=== PATIENT | female | born 2000 | race Caucasian/White ===

== ENCOUNTER 2019-05-23 11:58 | Emergency (ER) | payer OTHER ==
[2019-05-23 13:42] VITALS: BP 123/72
--- NOTE | 2019-05-26 07:08 | UC ---
- Progress Note Progress Note: urine culture - no growth, final no change analisa Course/Dx - Diagnoses Provider Diagnoses: Dysuria Discharge ED - Sign-Out/Discharge Documenting (check all that apply): Post-Discharge Follow Up All imaging exams completed and their final reports reviewed: No Studies - Discharge Plan Condition: Good Disposition: HOME Prescriptions: Sulfamethox/Trimethoprim DS* [Bactrim DS 800/160 TAB*] 1 tab PO BID 5 Days #10 tab Patient Education Materials: Urinary Tract Infection in Women (DC) Referrals: Jacqueline Marroquin MD [Primary Care Provider] - Additional Instructions: Increase fluids, take the antibiotic with food. Follow up at the [facility] if no improvement in 3 or 4 days. Go to the emergency room if you develop any fever, chills, back pain or vomiting and unable keep medicine down. - Billing Disposition and Condition Condition: GOOD Disposition: Home
--- NOTE | 2019-07-03 11:47 | UC ---
Complaint Female HPI - HPI Summary HPI Summary: Burning on urination just starting this morning. No fever, or chills. - History Of Current Complaint Chief Complaint: UCGU Stated Complaint: URINARY COMPLAINT Time Seen by Provider: 05/23/19 13:42 Hx Obtained From: Patient Hx Last Menstrual Period: 05/17/19 ?: No Onset/Duration: Gradual Onset Timing: Intermittent Severity Initially: Mild Severity Currently: Mild Pain Intensity: 0 Pain Scale Used: 0-10 Numeric Character: Burning Aggravating Factor(s): Urination Alleviating Factor(s): Nothing Associated Signs And Symptoms: Positive: Negative - Allergies/Home Medications Allergies/Adverse Reactions: Allergies Allergy/AdvReac Type Severity Reaction Status Date / Time No Known Allergies Allergy Verified 05/23/19 13:42 Home Medications: Home Medications Norethindrone-Ethinyl Estrad [Nortrel 0.5/35 (28) 0.5-35 mg-Mcg] 1 tab PO DAILY 05/23/19 [History Confirmed 05/23/19] PMH/Surg Hx/FS Hx/Imm Hx Previously Healthy: Yes - Surgical History Surgical History: None - Family History Known Family History: Positive: Non-Contributory - Social History Lives: With Family Alcohol Use: None Substance Use Type: None Smoking Status (MU): Never Smoked Tobacco Review of Systems All Other Systems Reviewed And Are Negative: Yes Genitourinary: Positive: Dysuria, Frequency, Urgency. Negative: Vaginal/Penile Burning, Vaginal/Penile Itching, Vaginal/Penile Discharge, Vaginal/Penile Pain, Vaginal/Penile Tenderness Is Patient Immunocompromised?: No Physical Exam Triage Information Reviewed: Yes Appearance: Well-Appearing, No Pain Distress, Well-Nourished Vital Signs: Initial Vital Signs Temp 98.9 F 05/23/19 13:38 Pulse 81 05/23/19 13:38 Resp 16 05/23/19 13:38 BP 123/72 05/23/19 13:38 Pulse Ox 100 05/23/19 13:38 Vital Signs Reviewed: Yes Eyes: Positive: Conjunctiva Clear ENT: Positive: Pharynx normal, TMs normal, Uvula midline Neck: Positive: Supple, Nontender, No Lymphadenopathy Respiratory: Positive: Lungs clear, Normal breath sounds, No respiratory distress, No accessory muscle use Cardiovascular: Positive: RRR, No Murmur, Pulses Normal, Brisk Capillary Refill Abdomen Description: Positive: Nontender, No Organomegaly, Soft. Negative: CVA Tenderness (R), CVA Tenderness (L), Distended, Guarding, Hepatomegaly, McBurney' s Point Tenderness, Splenomegaly Bowel Sounds: Positive: Present Musculoskeletal Exam: Normal Neurological Exam: Normal Psychological Exam: Normal Skin Exam: Normal Complaint Female Dx - Course Course Of Treatment: Urinalysis positive for UTI Will treat with Bactrim. Pt comfortable here. - Differential Dx/Diagnosis Provider Diagnosis: Dysuria Discharge ED - Sign-Out/Discharge Documenting (check all that apply): Patient Departure All imaging exams completed and their final reports reviewed: No Studies - Discharge Plan Condition: Good Disposition: HOME Prescriptions: Sulfamethox/Trimethoprim DS* [Bactrim DS 800/160 TAB*] 1 tab PO BID 5 Days #10 tab Patient Education Materials: Urinary Tract Infection in Women (DC) Referrals: Jacqueline Marroquin MD [Primary Care Provider] - Additional Instructions: Increase fluids, take the antibiotic with food. Follow up at the [facility] if no improvement in 3 or 4 days. Go to the emergency room if you develop any fever, chills, back pain or vomiting and unable keep medicine down. - Billing Disposition and Condition Condition: GOOD Disposition: Home
== END 2019-05-23 14:06 | disposition home or self-care (01) ==
LOC: UCCORT 11:58
DX: R30.0 Dysuria (principal); N39.0 Urinary tract infection, site not specified
CPT/HCPCS: 81003; 84702; 87086; 99202; G0463